=== PATIENT | female | born 2000 | race African-American/Black ===

== ENCOUNTER 2025-07-07 09:51 | Outpatient (CLI) | payer OTHER | END 2025-07-07 09:52 | disposition home or self-care (01) | LOC: CSHULT 09:51 | PROVIDERS: ATTEND Family Medicine | DX: O09.892 Supervision of other high risk pregnancies, second trimester (principal); Z3A.21 21 weeks gestation of pregnancy | CPT/HCPCS: 76805 ==

== ENCOUNTER 2025-10-17 18:42 | Day surgery (SDC) | payer OTHER ==
[2025-10-17 19:12] VITALS: BMI 40.4
[2025-10-17] MEDS ORDERED: hydrALAZINE 20 MG/ML VIAL SLOW IVP PRN (19:23)
== END 2025-10-17 21:35 | disposition home or self-care (01) ==
LOC: CSHLD/OP 18:42
PROVIDERS: ATTEND Family Medicine
DX: O47.03 False labor before 37 completed weeks of gestation, third trimester (principal); Z3A.36 36 weeks gestation of pregnancy; O99.013 Anemia complicating pregnancy, third trimester
CPT/HCPCS: 76819

== ENCOUNTER 2025-11-04 11:45 | Emergency (ER) | payer OTHER | END 2025-11-04 13:17 | disposition home or self-care (01) | LOC: CSHERS 11:45 | DX: O99.513 Diseases of the respiratory system complicating pregnancy, third trimester (principal); J39.9 Disease of upper respiratory tract, unspecified; B97.89 Other viral agents as the cause of diseases classified elsewhere; O99.333 Smoking (tobacco) complicating pregnancy, third trimester; F17.290 Nicotine dependence, other tobacco product, uncomplicated; Z3A.38 38 weeks gestation of pregnancy | CPT/HCPCS: 87428; 99284 ==

== ENCOUNTER 2025-11-10 12:03 | Day surgery (SDC) | payer OTHER ==
[2025-11-10 12:28] VITALS: BMI 41.3
== END 2025-11-10 15:05 | disposition home or self-care (01) ==
LOC: CSHLD/OP 12:03
PROVIDERS: ATTEND Family Medicine
DX: O99.891 Other specified diseases and conditions complicating pregnancy (principal); R10.20 Pelvic and perineal pain unspecified side; O36.8130 Decreased fetal movements, third trimester, not applicable or unspecified; Z3A.39 39 weeks gestation of pregnancy
CPT/HCPCS: 76819; 99282

== ENCOUNTER 2025-11-11 19:00 | Inpatient (IN) | payer OTHER ==
[2025-11-11] MEDS ORDERED: Acetaminophen 500 MG TAB PO PRN (21:33)
[2025-11-11] MEDS ORDERED: Ibuprofen 800 MG TAB PO PRN (21:33)
[2025-11-11] MEDS ORDERED: hydrALAZINE 20 MG/ML VIAL SLOW IVP PRN (21:33)
[2025-11-11] MEDS ORDERED: Diphenoxylate HCl/Atropine Tablet PO PRN (21:33)
[2025-11-11] MEDS ORDERED: HYDROcodone/Acetaminophen 5/325 mg Tablet PO PRN (21:33)
[2025-11-11] MEDS ORDERED: Methylergonovine 0.2 MG/ML VIAL IM PRN (21:33)
[2025-11-11] MEDS ORDERED: Tranexamic Acid 1,000 MG/10 ML VIAL IVP PRN (21:33)
[2025-11-11] MEDS ORDERED: Carboprost 250 MCG/ML AMP IM PRN (21:33)
[2025-11-11] MEDS ORDERED: Ondansetron PF 4 MG/2 ML Vial IVP PRN (21:33)
[2025-11-11] MEDS ORDERED: Lidocaine 1% (PF) 30 ML VIAL SC PRN (21:33)
[2025-11-11] MEDS ORDERED: Oxytocin 30 units/NS 500 ML 500 ML IV SCH (21:45)
[2025-11-11 22:06] VITALS: BMI 41.1
[2025-11-11 23:02] LABS: Hematocrit 33.0 % (34.9-44.5); Hemoglobin 11.1 g/dL (12.0-15.5); Mean Corpuscular Hemoglobin 28.6 pg (27.0-33.0); Mean Corpuscular Volume 85.1 fL (81.6-98.3); Platelet Count 341 10x3/uL (150-450); Red Blood Cell (RBC) Count 3.88 10x6/uL (3.90-5.03); White Blood Cell (WBC) Count 9.48 10x3/uL (3.5-10.5)
[2025-11-11 23:44] LABS: Hep B Surf Ag - L&D Non-Reactive S/CO (NonReactive)
[2025-11-12 02:15] LABS: Syphilis Antibody Index 15.31 S/CO (<1.00 Non-Reactive)
[2025-11-12 02:19] LABS: Syphilis Titer 1:2 Titer (Nonreactive)
[2025-11-12] MEDS: Oxytocin 30 units/NS 500 ML 500 ML IV SCH (06:35)
[2025-11-12] MEDS ORDERED: Bicitra 30 ML UDCUP PO PRN (09:13)
[2025-11-12] MEDS ORDERED: Famotidine/PF 20 mg/2ml Vial SLOW IVP PRN (09:13)
[2025-11-12] MEDS ORDERED: Ondansetron PF 4 MG/2 ML Vial ONE (11:53)
[2025-11-12] MEDS ORDERED: diphenhydrAMINE 50 MG/ML VIAL IVP PRN (13:19)
[2025-11-12] MEDS ORDERED: Ketorolac Tromethamine 30 MG (1 mL) VIAL IVP PRN (13:19)
[2025-11-12] MEDS ORDERED: Ondansetron PF 4 MG/2 ML Vial IVP PRN ×2 (13:19→14:52)
[2025-11-12] MEDS ORDERED: Meperidine HCl/PF 25 MG (1 mL) VIAL SLOW IVP PRN (13:19)
[2025-11-12] MEDS ORDERED: Communication Order-Pharmacy FS SCH (13:30)
[2025-11-12] MEDS ORDERED: hydrALAZINE 20 MG/ML VIAL SLOW IVP PRN (14:52)
[2025-11-12] MEDS ORDERED: diphenhydrAMINE 25 MG CAP PO PRN (14:52)
[2025-11-12] MEDS ORDERED: Lanolin Ointment 7 GM TUBE TOP PRN (14:52)
[2025-11-12] MEDS ORDERED: Bisacodyl 10 MG SUPP PR PRN (14:52)
[2025-11-12] MEDS: Ketorolac Tromethamine 30 MG (1 mL) VIAL ONE (15:31)
[2025-11-12] MEDS: PHENYLEPHRINE-NS 100 MCG/ML 10 ML SYRINGE ONE ×2 (15:31)
[2025-11-12] MEDS: Oxytocin 10 UNITS/ML VIAL ONE (15:31)
[2025-11-12] MEDS: Ondansetron PF 4 MG/2 ML Vial IVP PRN (16:12)
[2025-11-12] MEDS: Ketorolac Tromethamine 30 MG (1 mL) VIAL IVP SCH (17:07)
[2025-11-12] MEDS: Ferrous Sulfate 325 MG TAB PO SCH (19:27)
[2025-11-13] MEDS ORDERED: Meperidine HCl/PF 25 MG (1 mL) VIAL IM PRN (01:30)
[2025-11-13 03:42] LABS: Hematocrit 24.6 % (34.9-44.5); Hemoglobin 8.3 g/dL (12.0-15.5); Mean Corpuscular Hemoglobin 29.2 pg (27.0-33.0); Mean Corpuscular Volume 86.6 fL (81.6-98.3); Platelet Count 212 10x3/uL (150-450); Red Blood Cell (RBC) Count 2.84 10x6/uL (3.90-5.03); White Blood Cell (WBC) Count 9.93 10x3/uL (3.5-10.5)
[2025-11-13] MEDS: HYDROcodone/Acetaminophen 5/325 mg Tablet PO PRN ×2 (08:52→14:51)
[2025-11-13] MEDS: Ibuprofen 800 MG TAB PO SCH (14:51)
[2025-11-14] MEDS: Simethicone Chewable 80 MG TAB PO PRN (10:25)
[2025-11-14 19:11] VITALS: BP 113/59; TEMP 98.6
== END 2025-11-14 19:44 | disposition home or self-care (01) | DRG 788 ==
LOC: CSHLD 21:06 → CSHPED 11-12 15:18
PROVIDERS: ADMIT Family Medicine; ATTEND Family Medicine
PROC: 10D00Z1 Extraction of Products of Conception, Low, Open Approach (ICD-10-PCS; principal; 2025-11-12)
DX: O99.214 Obesity complicating childbirth (principal); E66.01 Morbid (severe) obesity due to excess calories; Z3A.39 39 weeks gestation of pregnancy; Z37.0 Single live birth; O77.0 Labor and delivery complicated by meconium in amniotic fluid
CPT/HCPCS: 36415; 51702; 85027; 86593; 86780; 86850; 86900; 86901; 87340; C1889; J1885; J2274; J2405; J2590